=== PATIENT | male | born 1960 | race African-American/Black ===

== ENCOUNTER 2021-11-13 15:55 | Emergency (ER) | payer MEDICAID ==
[~2021-11-13] VITALS: Ht 185.4 cm; Wt 88.0 kg
[~2021-11-13 15:55] MED LIST: HYDROCHLOROTHIAZIDE; TAMS-11 PO
[2021-11-13 16:06] VITALS: BP 166/103
[2021-11-13] MEDS ORDERED: CEPH500C2 MT (22:36)
== END 2021-11-13 17:32 | disposition left against medical advice (07) ==
LOC: ER 15:55
DX: Z53.21 Procedure and treatment not carried out due to patient leaving prior to being seen by health care provider (principal)

== ENCOUNTER 2021-11-13 18:52 | Emergency (ER) | payer MEDICAID ==
[~2021-11-13] VITALS: Ht 188 cm; Wt 87.0 kg
[2021-11-13 19:29] LABS: BASOPHILS % 0.5 % (0.0-2.0); HEMOGLOBIN. 15.1 g/dL (14.0-18.0); LYMPHOCYTES % 33.5 % (20.0-50.0); MEAN CORPUSCULAR HEMOGLOBIN 29.6 pg (28.0-32.0); MEAN PLATELET VOLUME 9.5 fl (7.4-10.4); MONOCYTES % 5.4 % (2.0-8.0); NEUTROPHILS % 59.6 % (40.0-76.0); PLATELET 137 x1000/uL (130-400); RED BLOOD CELL COUNT 5.11 mill/uL (4.7-6.1); RED CELL DISTRIBUTION WIDTH 14.7 % (11.6-14.6)
[2021-11-13 19:36] LABS: CHLORIDE 110 mEq/L (98-107)
[2021-11-13 22:17] LABS: CLARITY URINE CLOUDY (CLEAR); COLOR URINE YELLOW (YELLOW); KETONES URINE TRACE (NEGATIVE); LEUKOCYTE ESTERASE URINE 3+ (NEGATIVE); NITRITE URINE NEGATIVE (NEGATIVE); OCCULT BLOOD URINE TRACE (NEGATIVE); PH URINE 5.5 (4.5-8.0); PROTEIN URINE TRACE (NEGATIVE); SPECIFIC GRAVITY URINE 1.021 (1.005-1.030); UROBILINOGEN URINE 0.2 E.U./dL (0.2-1.0)
[2021-11-13] MEDS ORDERED: CEFTRIAXONE 1 G PREMIX 50 ML IV ONE (22:30)
[2021-11-13] MEDS ORDERED: CEPH500C2 MT (22:36)
[2021-11-13 23:37] VITALS: BP 141/78
== END 2021-11-13 23:39 | disposition home or self-care (01) ==
LOC: ER 18:52
DX: R33.9 Retention of urine, unspecified (principal); N39.0 Urinary tract infection, site not specified; I10 Essential (primary) hypertension
CPT/HCPCS: 36415; 80053; 81003; 85025; 87077; 87086; 87186; 96365; 99284; J0696

== ENCOUNTER 2022-05-27 19:11 | Emergency (ER) | payer MEDICAID ==
[~2022-05-27] VITALS: Ht 188 cm; Wt 90.0 kg
[~2022-05-27 19:11] MED LIST changes: +CEPH500C2 MT
[2022-05-27 19:18] VITALS: BP 164/90
[2022-05-27] MEDS ORDERED: TAMSULOSIN HCL 0.4MG SR CAPSULE PO ONE ×2 (19:45)
== END 2022-05-28 01:27 ==
LOC: ER 19:11
DX: Z00.00 Encounter for general adult medical examination without abnormal findings (principal); D29.1 Benign neoplasm of prostate; E78.00 Pure hypercholesterolemia, unspecified; I10 Essential (primary) hypertension
CPT/HCPCS: 99283

== ENCOUNTER 2022-06-19 15:34 | Emergency (ER) | payer MEDICAID ==
[~2022-06-19] VITALS: Ht 182.9 cm; Wt 95.0 kg
[2022-06-19 15:37] VITALS: BP 138/83
[2022-06-19] MEDS ORDERED: SODIUM CHLORIDE 0.9% 1,000 ML IV ONE (16:00)
[2022-06-19 16:14] LABS: BASOPHILS % 0.6 % (0.0-2.0); EOSINOPHILS % 3.1 % (0.0-5.0); HEMATOCRIT. 41.1 % (42.0-52.0); HEMOGLOBIN. 13.8 g/dL (14.0-18.0); LYMPHOCYTES % 33.4 % (20.0-50.0); MEAN CORPUSCULAR HEMOGLOBIN 29.8 pg (28.0-32.0); MEAN CORPUSCULAR VOLUME 88.8 fL (80.0-94.0); MEAN PLATELET VOLUME 9.5 fl (7.4-10.4); MONOCYTES % 6.8 % (2.0-8.0); NEUTROPHILS % 56.1 % (40.0-76.0); PLATELET 148 x1000/uL (130-400); RED BLOOD CELL COUNT 4.63 mill/uL (4.7-6.1); RED CELL DISTRIBUTION WIDTH 14.1 % (11.6-14.6)
[2022-06-19 16:17] LABS: CHLORIDE 112 mEq/L (98-107)
[2022-06-19 17:41] LABS: CLARITY URINE TURBID (CLEAR); COLOR URINE ORANGE (YELLOW); KETONES URINE NEGATIVE (NEGATIVE); LEUKOCYTE ESTERASE URINE 3+ (NEGATIVE); NITRITE URINE POSITIVE (NEGATIVE); OCCULT BLOOD URINE 3+ (NEGATIVE); PROTEIN URINE 2+ (NEGATIVE); SPECIFIC GRAVITY URINE 1.023 (1.005-1.030)
[2022-06-19] MEDS ORDERED: CEFTRIAXONE 1GM PREMIX 50 ML IV NR (18:00)
[2022-06-19] MEDS ORDERED: DIPHENHYDRAMINE 50MG/ML VIAL ONE (18:41)
[2022-06-19] MEDS ORDERED: SULF1TAB48 MT (19:09)
[2022-06-19] MEDS ORDERED: DIPH25CA83 MT (19:09)
== END 2022-06-19 19:59 | disposition home or self-care (01) ==
LOC: ER 15:34
DX: N39.0 Urinary tract infection, site not specified (principal); I10 Essential (primary) hypertension; E78.00 Pure hypercholesterolemia, unspecified; Z98.890 Other specified postprocedural states
CPT/HCPCS: 36415; 80053; 81003; 83605; 83690; 85025; 85610; 87086; 87186; 96361; 96365; 99284; J0696; J1200; J7030; Z7610

== ENCOUNTER 2022-08-13 17:56 | Emergency (ER) | payer MEDICAID ==
[~2022-08-13] VITALS: Ht 177.8 cm; Wt 73.0 kg
[~2022-08-13 17:56] MED LIST changes: +DIPH25CA83 MT; +SULF1TAB48 MT
[2022-08-13 18:04] VITALS: O2SAT 97
[2022-08-13 18:40] LABS: BASOPHILS % 0.8 % (0.0-2.0); EOSINOPHILS % 4.1 % (0.0-5.0); HEMATOCRIT. 44.1 % (42.0-52.0); HEMOGLOBIN. 14.5 g/dL (14.0-18.0); LYMPHOCYTES % 39.1 % (20.0-50.0); MEAN CORPUSCULAR HEMOGLOBIN 29.4 pg (28.0-32.0); MEAN CORPUSCULAR VOLUME 89.4 fL (80.0-94.0); MEAN PLATELET VOLUME 9.8 fl (7.4-10.4); MONOCYTES % 7.9 % (2.0-8.0); NEUTROPHILS % 48.1 % (40.0-76.0); PLATELET 155 x1000/uL (130-400); RED BLOOD CELL COUNT 4.94 mill/uL (4.7-6.1); RED CELL DISTRIBUTION WIDTH 14.5 % (11.6-14.6)
[2022-08-13 18:47] LABS: CHLORIDE 113 mEq/L (98-107)
[2022-08-13 18:56] LABS: ETHANOL BLOOD < 10 mg/dL (-10)
[2022-08-13] MEDS ORDERED: ASPIRIN 325MG EC TABLET PO ONE (19:15)
[2022-08-13] MEDS ORDERED: DEXTROSE 50% WATER 50ML SYRINGE IV ONE (21:15)
[2022-08-13 21:21] LABS: CLARITY URINE CLOUDY (CLEAR); COLOR URINE YELLOW (YELLOW); KETONES URINE TRACE (NEGATIVE); LEUKOCYTE ESTERASE URINE 3+ (NEGATIVE); NITRITE URINE NEGATIVE (NEGATIVE); OCCULT BLOOD URINE 3+ (NEGATIVE); PROTEIN URINE TRACE (NEGATIVE)
[2022-08-13] MEDS ORDERED: CEFTRIAXONE 1GM PREMIX 50 ML IV ONE (21:30)
[2022-08-13 21:42] LABS: *AMPHETAMINES SCREEN URINE NEGATIVE (NEGATIVE); *BARBITURATES SCREEN URINE NEGATIVE (NEGATIVE); *BENZODIAZEPINES SCREEN URINE NEGATIVE (NEGATIVE); *COCAINE SCREEN URINE PRESUMTIVE POSITIVE (NEGATIVE); CANNABINOID URINE SCREEN PRESUMTIVE POSITIVE (NEGATIVE); METHADONE URINE SCREEN NEGATIVE (NEGATIVE); OPIATES URINE SCREEN NEGATIVE (NEGATIVE); PHENCYCLIDINE URINE SCREEN NEGATIVE (NEGATIVE)
[2022-08-13] MEDS ORDERED: EPINEPHRINE 1:1000 1 MG/ML AMP INJ STA (22:05)
[2022-08-13] MEDS ORDERED: METHYLPREDNISOLONE SOD SUCC 125 MG/2 ML VIAL IV ONE (22:15)
[2022-08-13] MEDS ORDERED: FAMOTIDINE 20MG/2ML VIAL IV ONE (22:15)
[2022-08-13] MEDS ORDERED: DIPHENHYDRAMINE 50MG/ML VIAL IV ONE (22:15)
[2022-08-13] MEDS ORDERED: EPINEPHRINE 1:1000 1 MG/ML AMP INJ ONE (22:15)
[2022-08-13] MEDS ORDERED: LEVOFLOXACIN 500MG PREMIX 100 ML IV ONE (22:30)
[2022-08-14 00:35] VITALS: BP 111/69; PULSE 62; RESP 12; TEMP 98.2
== END 2022-08-14 00:58 | disposition short-term general hospital (02) ==
LOC: ER 17:56
DX: I21.4 Non-ST elevation (NSTEMI) myocardial infarction (principal); F17.200 Nicotine dependence, unspecified, uncomplicated; F14.10 Cocaine abuse, uncomplicated; E78.00 Pure hypercholesterolemia, unspecified; I10 Essential (primary) hypertension
CPT/HCPCS: 36415; 71045; 80053; 80305; 80320; 81003; 82962; 83880; 84484; 85025; 85379; 85730; 87077; 87086; 87186; 93005; 96365; 96367; 96375; 99291; J0696; J1200; J1956; J2930; J3490; Z7610; A4315; G0480

== ENCOUNTER 2024-07-01 11:32 | Inpatient (IN) | payer MEDICAID ==
[2024-07-01] VITALS (10 sets, daily range): BP systolic 99–127; BP diastolic 67–95; PULSE 80–96; RESP 19–28; TEMP 36.7–37.1; O2SAT 94–95
[~2024-07-01] VITALS: Ht 185.4 cm; Wt 75.7 kg
[~2024-07-01 11:32] MED LIST changes: +ATOR20TA65 PO; +BUDE6HFA IH; +FINA5TAB11 PO; +HYDR25TA PO; +METO-396 PO; -SULF1TAB48 MT; -TAMS-11 PO; +TAMS-54 PO
[2024-07-01] MEDS: PIPERACILLIN/TAZO 3.375G/50ML 50 ML IV ONE (11:49)
[2024-07-01] MEDS: SODIUM CHLORIDE 0.9% (SEPSIS BOLUS) IV ONE (11:50)
[2024-07-01] MEDS: VANCOMYCIN 1G PREMIX 200 ML IV ONE (11:50)
[2024-07-01 11:53] LABS: BASOPHILS % 0.8 % (0.0-2.0); DIFFERENTIAL COMMENT 0; HEMATOCRIT. 39.1 % (42.0-52.0); HEMOGLOBIN. 12.6 g/dL (14.0-18.0); LYMPHOCYTES % 21.1 % (20.0-50.0); MEAN CORPUSCULAR HEMOGLOBIN 26.5 pg (28.0-32.0); MEAN CORPUSCULAR HGB CONC 32.3 g/dL (31.0-37.0); MEAN CORPUSCULAR VOLUME 82.1 fL (80.0-94.0); MEAN PLATELET VOLUME 9.9 fl (7.4-10.4); MONOCYTES % 7.3 % (2.0-8.0); NEUTROPHILS % 70.8 % (40.0-76.0); PLATELET 143 x1000/uL (130-400); RED BLOOD CELL COUNT 4.76 mill/uL (4.7-6.1); RED CELL DISTRIBUTION WIDTH 16.4 % (11.6-14.6); WHITE BLOOD COUNT 4.6 x1000/uL (4.5-11.0)
[2024-07-01 12:11] LABS: CARBON DIOXIDE 30 mEq/L (21-32); CHLORIDE 100 mEq/L (98-107); POTASSIUM 4.8 mEq/L (3.5-5.1); SODIUM 135 mEq/L (136-145)
[2024-07-01 12:12] LABS: CALCIUM 8.2 mg/dL (8.7-10.4)
[2024-07-01] MEDS: ALBUTEROL (0.083%) 2.5MG/3ML NEB HHN STA (12:15)
[2024-07-01] MEDS: IPRATROPIUM BROMIDE (0.02%) 0.5MG/2.5ML NEB HHN STA (12:15)
[2024-07-01 12:17] LABS: CREATININE 1.3 mg/dL (0.6-1.3); GLUCOSE 134 mg/dL (70-105); UREA NITROGEN BLOOD 20 mg/dL (9-23)
[2024-07-01 12:18] LABS: ALANINE AMINOTRANSFERASE 75 IU/L (10-49); ASPARTATE AMINOTRANSFERASE 47 IU/L (<34)
[2024-07-01 12:19] LABS: ALBUMIN 3.2 g/dL (3.2-4.8); BILIRUBIN DIRECT 0.3 mg/dL (<=3.0); BILIRUBIN TOTAL 0.7 mg/dL (0.1-1.0); PROTEIN TOTAL 6.1 g/dL (6.0-8.3)
[2024-07-01 12:21] LABS: TROPONIN I HIGH SENSITIVITY 56 ng/L (3.0-53)
[2024-07-01] MEDS ORDERED: DOCUSATE SODIUM 100MG CAPSULE PO PRN (15:00)
[2024-07-01] MEDS ORDERED: ACETAMINOPHEN 325MG TABLET PO PRN ×2 (15:00)
[2024-07-01] MEDS ORDERED: ONDANSETRON HCL 4MG/2ML INJ IV PRN (15:00)
[2024-07-01] MEDS ORDERED: IPRATROPIUM/ALBUTEROL 0.5-3(2.5)MG/3ML NEB HHN PRN (15:00)
[2024-07-01 16:07] LABS: TROPONIN I HIGH SENSITIVITY 67 ng/L (3.0-53)
[2024-07-01] MEDS: METHYLPREDNISOLONE SOD SUCC 40MG/ML (ACT-O-VIAL) IV SCH (16:08)
[2024-07-01] MEDS: ENOXAPARIN 40MG/0.4ML SYR SUBCUT SCH (16:08)
[2024-07-01] MEDS: IPRATROPIUM/ALBUTEROL 0.5-3(2.5)MG/3ML NEB HHN SCH (16:09)
[2024-07-01] MEDS: FUROSEMIDE 40MG/4ML VIAL IVP SCH (16:49)
[2024-07-01] MEDS: CLONIDINE 0.1MG TABLET PO PRN (17:51)
[2024-07-01 19:02] LABS: BG BASE EXCESS 4.4 mmol/L (-2.0-3.0); BG CARBOXYHEMOGLOBIN 1.1 % (0.5-1.5); BG DEOXYHEMOGLOBIN 9.3 % (0.0-5.0); BG FRACTION INSPIRED OXYGEN 21; BG HCO3 ACT 26.5 mmol/L (21.0-28.0); BG METHEMOGLOBIN 0.3 % (0.5-1.5); BG OXYGEN SATURATION 90.6 % (94.0-98.0); BG OXYHEMOGLOBIN 89.3 % (94.0-98.0); BG PCO2 31.5 mmHg (35.0-48.0); BG PH 7.542 (7.350-7.450); BG PO2 54.7 mmHg (83.0-108.0); BG SAMPLE SITE RIGHT BRACHIAL; BG TOTAL HEMOGLOBIN 13.1 g/dL (13.5-17.5); BG VENT MODE ROOM AIR
[2024-07-01 21:27] LABS: D-DIMER 0.91 mg/L FEU (<0.50); INR 1.3
[2024-07-01 21:34] LABS: THYROID STIMULATING HORMONE 1.14 uIU/mL (0.55-4.78)
[2024-07-01 21:35] LABS: T4 FREE 1.25 ng/dL (0.89-1.76)
[2024-07-01] MEDS: PIPERACILLIN/TAZO 3.375G/50ML 50 ML IV SCH (23:04)
[2024-07-01] MEDS: AZITHROMYCIN 500MG/250ML 250 ML IV SCH (23:56)
[2024-07-01] MEDS: ATORVASTATIN CALCIUM 20MG TABLET PO SCH (23:56)
[2024-07-02] VITALS (18 sets, daily range): BP systolic 103–132; BP diastolic 69–94; PULSE 71–96; RESP 15–30; TEMP 36.4–36.9; O2SAT 91–98
[2024-07-02 00:40] LABS: CREATINE KINASE MB FRACTION 0.8 ng/mL (0.5-3.6)
[2024-07-02 06:21] LABS: INR 1.3; PROTHROMBIN TIME 13.7 sec (9.6-11.0)
[2024-07-02 06:22] LABS: BASOPHILS % 0.3 % (0.0-2.0); DIFFERENTIAL COMMENT 0; HEMATOCRIT. 35.2 % (42.0-52.0); HEMOGLOBIN. 11.5 g/dL (14.0-18.0); MEAN CORPUSCULAR HEMOGLOBIN 26.2 pg (28.0-32.0); MEAN CORPUSCULAR HGB CONC 32.6 g/dL (31.0-37.0); MEAN CORPUSCULAR VOLUME 80.1 fL (80.0-94.0); MEAN PLATELET VOLUME 9.8 fl (7.4-10.4); MONOCYTES % 4.6 % (2.0-8.0); NEUTROPHILS % 83.1 % (40.0-76.0); PLATELET 135 x1000/uL (130-400); RED CELL DISTRIBUTION WIDTH 16.1 % (11.6-14.6)
[2024-07-02 06:46] LABS: CHLORIDE 99 mEq/L (98-107); POTASSIUM 4.3 mEq/L (3.5-5.1); SODIUM 135 mEq/L (136-145)
[2024-07-02 06:47] LABS: CALCIUM 7.7 mg/dL (8.7-10.4); CARBON DIOXIDE 31 mEq/L (21-32)
[2024-07-02 06:52] LABS: CREATININE 1.3 mg/dL (0.6-1.3); GLUCOSE 163 mg/dL (70-105); TRIGLYCERIDE 54 mg/dL (0-150); UREA NITROGEN BLOOD 26 mg/dL (9-23)
[2024-07-02 06:53] LABS: ALANINE AMINOTRANSFERASE 56 IU/L (10-49); LDL CHOLESTEROL 78 mg/dL (5-100)
[2024-07-02 06:54] LABS: ALBUMIN 2.7 g/dL (3.2-4.8); ASPARTATE AMINOTRANSFERASE 31 IU/L (<34); BILIRUBIN DIRECT 0.3 mg/dL (<=3.0); CHOLESTEROL 112 mg/dL (<200); HDL CHOLESTEROL 25 mg/dL (>55); PHOSPHORUS 3.4 mg/dL (2.5-4.9); PROTEIN TOTAL 4.9 g/dL (6.0-8.3)
[2024-07-02 06:55] LABS: BILIRUBIN TOTAL 0.6 mg/dL (0.1-1.0)
[2024-07-02 06:56] LABS: CREATINE KINASE MB FRACTION 1.1 ng/mL (0.5-3.6)
[2024-07-02] MEDS: LOSARTAN 25 MG TABLET PO SCH (08:33)
[2024-07-02] MEDS: ASPIRIN 81MG TABLET PO SCH (08:33)
[2024-07-02] MEDS: FINASTERIDE 5MG TABLET PO SCH (08:34)
[2024-07-02] MEDS: TAMSULOSIN HCL 0.4MG SR CAPSULE PO SCH (08:34)
[2024-07-02] MEDS: FAMOTIDINE 20MG/2ML VIAL IV SCH (08:34)
[2024-07-03] VITALS (17 sets, daily range): BP systolic 120–154; BP diastolic 75–125; PULSE 82–95; RESP 16–28; TEMP 36.6–36.8; O2SAT 90–99
[2024-07-03 00:31] LABS: CLARITY URINE CLEAR (CLEAR); COLOR URINE YELLOW (YELLOW); GLUCOSE URINE NEGATIVE (NEGATIVE); KETONES URINE NEGATIVE (NEGATIVE); LEUKOCYTE ESTERASE URINE 2+ (NEGATIVE); NITRITE URINE NEGATIVE (NEGATIVE); OCCULT BLOOD URINE NEGATIVE (NEGATIVE); PROTEIN URINE NEGATIVE (NEGATIVE); SPECIFIC GRAVITY URINE 1.009 (1.005-1.030); UROBILINOGEN URINE 0.2 E.U./dL (0.2-1.0)
[2024-07-03 00:57] LABS: *AMPHETAMINES SCREEN URINE NEGATIVE (NEGATIVE); *BARBITURATES SCREEN URINE NEGATIVE (NEGATIVE); *BENZODIAZEPINES SCREEN URINE NEGATIVE (NEGATIVE); *COCAINE SCREEN URINE NEGATIVE (NEGATIVE); CANNABINOID URINE SCREEN NEGATIVE (NEGATIVE); ECSTASY MDMA SCREEN URINE NEGATIVE (NEGATIVE); METHADONE URINE SCREEN NEGATIVE (NEGATIVE); OPIATES URINE SCREEN NEGATIVE (NEGATIVE); PHENCYCLIDINE URINE SCREEN NEGATIVE (NEGATIVE)
[2024-07-03 01:31] LABS: RBC URINE NONE SEEN /hpf (0-2); SQUAMOUS EPITHELIAL CELL URINE NONE SEEN /lpf (RARE/1+); WBC URINE 25-50 /hpf (0-2)
[2024-07-03 01:32] LABS: BACTERIA URINE TRACE
[2024-07-03] MEDS: AZITHROMYCIN 500 MG TABLET PO SCH (21:37)
[2024-07-04] VITALS (11 sets, daily range): BP systolic 120–155; BP diastolic 60–95; PULSE 78–95; RESP 14–25; TEMP 36.5–36.8; O2SAT 95–99
[2024-07-04] MEDS ORDERED: LOSA25TA26 PO (10:06)
[2024-07-04] MEDS ORDERED: FURO40TA5 MT (10:06)
[2024-07-04] MEDS ORDERED: FAMO20TA8 MT (10:06)
[2024-07-04] MEDS ORDERED: ASPI-1160 PO (10:06)
[2024-07-04] MEDS ORDERED: P20 MT (10:06)
== END 2024-07-04 13:48 | disposition home or self-care (01) | DRG 720 ==
LOC: ER 11:38 → 5EST 14:05
PROVIDERS: ADMIT Internal Medicine; ATTEND Internal Medicine
PROC: 5A09357 Assistance with Respiratory Ventilation, Less than 24 Consecutive Hours, Continuous Positive Airway Pressure (ICD-10-PCS; principal; 2024-07-01)
DX: A41.9 Sepsis, unspecified organism (principal); J96.01 Acute respiratory failure with hypoxia; E87.20 Acidosis, unspecified; J18.9 Pneumonia, unspecified organism; I11.0 Hypertensive heart disease with heart failure; I50.9 Heart failure, unspecified; J44.0 Chronic obstructive pulmonary disease with (acute) lower respiratory infection; Z20.822 Contact with and (suspected) exposure to COVID-19; N40.0 Benign prostatic hyperplasia without lower urinary tract symptoms; F12.90 Cannabis use, unspecified, uncomplicated; R65.20 Severe sepsis without septic shock; E78.00 Pure hypercholesterolemia, unspecified; J44.1 Chronic obstructive pulmonary disease with (acute) exacerbation; Z88.1 Allergy status to other antibiotic agents
CPT/HCPCS: 36415; 36600; 71045; 80048; 80061; 80076; 80305; 81003; 82375; 82550; 82553; 82805; 83036; 83605; 83735; 83880; 84100; 84145; 84439; 84443; 84480; 84484; 85025; 85379; 87426; 93005; 93306; 94070; 94640; 94660; 94664; 99291; A4606; J0456; J1650; J1940; J2543; J2919; J3370; J3490; J7030

== ENCOUNTER 2024-09-20 10:25 | Emergency (ER) | payer MEDICAID ==
[~2024-09-20] VITALS: Ht 188 cm; Wt 80.0 kg
[~2024-09-20 10:25] MED LIST changes: +ASPI-1160 PO; -CEPH500C2 MT; +COR12 PO; -DIPH25CA83 MT; +ERTA1VIA3 IM; +FAMO20TA8 MT; +FURO40TA5 MT; -HYDR25TA PO; -HYDROCHLOROTHIAZIDE; +LOSA25TA26 PO; -METO-396 PO
[2024-09-20 11:02] VITALS: PULSE 80; RESP 22; O2SAT 95
[2024-09-20] MEDS: ALBUTEROL (0.083%) 2.5MG/3ML NEB HHN SCH (11:02)
[2024-09-20] MEDS: IPRATROPIUM BROMIDE (0.02%) 0.5MG/2.5ML NEB HHN SCH (11:02)
[2024-09-20 12:00] LABS: BASOPHILS % 1.1 % (0.0-2.0); EOSINOPHILS % 1.8 % (0.0-5.0); HEMATOCRIT. 42.9 % (42.0-52.0); HEMOGLOBIN. 13.8 g/dL (14.0-18.0); LYMPHOCYTES % 29.5 % (20.0-50.0); MEAN PLATELET VOLUME 10.1 fl (7.4-10.4); MONOCYTES % 7.5 % (2.0-8.0); NEUTROPHILS % 60.1 % (40.0-76.0); PLATELET 184 x1000/uL (130-400); RED BLOOD CELL COUNT 5.22 mill/uL (4.7-6.1); RED CELL DISTRIBUTION WIDTH 21.6 % (11.6-14.6)
[2024-09-20 12:09] VITALS: PULSE 90; RESP 20; O2SAT 96
[2024-09-20] MEDS ORDERED: P50 PO (12:48)
[2024-09-20] MEDS ORDERED: ALBU90AE INH (12:48)
[2024-09-20 12:49] VITALS: PULSE 84; RESP 20; O2SAT 95
[2024-09-20 13:03] LABS: CREATININE 1.4 mg/dL (0.6-1.3); UREA NITROGEN BLOOD 29 mg/dL (9-23)
[2024-09-20 13:19] LABS: TROPONIN I HIGH SENSITIVITY 59 ng/L (3.0-53)
[2024-09-20 13:28] VITALS: BP 136/93; PULSE 86; RESP 22; TEMP 37.1; O2SAT 98
== END 2024-09-20 13:32 | disposition home or self-care (01) ==
LOC: ER 10:25 → CMPBEDREQ 09-21 22:27
DX: J44.1 Chronic obstructive pulmonary disease with (acute) exacerbation (principal); I50.9 Heart failure, unspecified; Z46.6 Encounter for fitting and adjustment of urinary device; Z79.51 Long term (current) use of inhaled steroids; Z79.52 Long term (current) use of systemic steroids; Z79.82 Long term (current) use of aspirin; Z79.899 Other long term (current) drug therapy; Z87.440 Personal history of urinary (tract) infections; Z88.1 Allergy status to other antibiotic agents
CPT/HCPCS: 80048; 85025; 84484; 36415; 71045; 94640; 93005; 51702; 99285; Z7610 ×6; 94070; A4606

== ENCOUNTER 2024-12-01 18:38 | Inpatient (IN) | payer MEDICAID ==
[~2024-12-01] VITALS: Ht 185.4 cm; Wt 72.7 kg
[~2024-12-01 18:38] MED LIST changes: +ALBU90AE INH; +P50 PO
[2024-12-01] MEDS: FUROSEMIDE 40MG/4ML VIAL IV ONE (20:49)
[2024-12-01] MEDS: METHYLPREDNISOLONE SOD SUCC 125MG/2ML (ACT-O-VIAL) IV ONE (20:49)
[2024-12-01 20:51] VITALS: PULSE 99; RESP 27
[2024-12-01] MEDS: ALBUTEROL (0.083%) 2.5MG/3ML NEB HHN ONE (20:51)
[2024-12-01] MEDS: IPRATROPIUM BROMIDE (0.02%) 0.5MG/2.5ML NEB HHN ONE (20:51)
[2024-12-01 21:09] LABS: BASOPHILS % 1.0 % (0.0-2.0); EOSINOPHILS % 1.6 % (0.0-5.0); HEMATOCRIT. 37.5 % (42.0-52.0); HEMOGLOBIN. 11.6 g/dL (14.0-18.0); LYMPHOCYTES % 25.5 % (20.0-50.0); MEAN PLATELET VOLUME 8.7 fl (7.4-10.4); MONOCYTES % 9.4 % (2.0-8.0); NEUTROPHILS % 62.5 % (40.0-76.0); PLATELET 211 x1000/uL (130-400); RED BLOOD CELL COUNT 4.70 mill/uL (4.7-6.1); RED CELL DISTRIBUTION WIDTH 18.6 % (11.6-14.6)
[2024-12-01 21:26] LABS: CREATININE 1.2 mg/dL (0.6-1.3); TROPONIN I HIGH SENSITIVITY 48 ng/L (3.0-53); UREA NITROGEN BLOOD 11 mg/dL (9-23)
[2024-12-01 21:27] LABS: ASPARTATE AMINOTRANSFERASE 26 IU/L (<34)
[2024-12-01 21:28] LABS: BILIRUBIN DIRECT 0.4 mg/dL (<=3.0); BILIRUBIN TOTAL 0.9 mg/dL (0.1-1.0); PROTEIN TOTAL 6.7 g/dL (6.0-8.3)
[2024-12-01 21:57] LABS: INR 1.2
[2024-12-01] MEDS ORDERED: DOCUSATE SODIUM 100MG CAPSULE PO PRN (22:45)
[2024-12-01] MEDS ORDERED: IPRATROPIUM/ALBUTEROL 0.5-3(2.5)MG/3ML NEB HHN PRN (22:45)
[2024-12-01] MEDS ORDERED: ONDANSETRON HCL 4MG/2ML INJ IV PRN (22:45)
[2024-12-01] MEDS ORDERED: ACETAMINOPHEN 325MG TABLET PO PRN ×2 (22:45)
[2024-12-01] MEDS ORDERED: CLONIDINE 0.1MG TABLET PO PRN (22:45)
[2024-12-01] MEDS ORDERED: MAGNESIUM/ALUMINUM HYDROXIDE/SIMETHICONE 30ML UDC PO PRN (22:45)
[2024-12-01 22:51] LABS: CLARITY URINE CLEAR (CLEAR); GLUCOSE URINE NEGATIVE (NEGATIVE); KETONES URINE NEGATIVE (NEGATIVE); LEUKOCYTE ESTERASE URINE TRACE (NEGATIVE); NITRITE URINE NEGATIVE (NEGATIVE); OCCULT BLOOD URINE NEGATIVE (NEGATIVE); PH URINE 7.0 (4.5-8.0); PROTEIN URINE NEGATIVE (NEGATIVE); SPECIFIC GRAVITY URINE 1.007 (1.005-1.030); UROBILINOGEN URINE 0.2 E.U./dL (0.2-1.0)
[2024-12-01 23:03] LABS: COLOR URINE STRAW (YELLOW)
[2024-12-01 23:05] LABS: RBC URINE NONE SEEN /hpf (0-2)
[2024-12-01 23:06] LABS: BACTERIA URINE NONE SEEN; SQUAMOUS EPITHELIAL CELL URINE NONE SEEN /lpf (RARE/1+)
[2024-12-01 23:40] LABS: TROPONIN I HIGH SENSITIVITY 48 ng/L (3.0-53)
[2024-12-02] VITALS (7 sets, daily range): BP systolic 127–160; BP diastolic 62–99; PULSE 70–104; RESP 18–23; TEMP 35.6–37.252; O2SAT 93–97
[2024-12-02] MEDS ORDERED: HYOS-16 SL (02:18)
[2024-12-02] MEDS ORDERED: IPRA3AMP9 (02:18)
[2024-12-02] MEDS ORDERED: ACET650S27 RC (02:18)
[2024-12-02] MEDS ORDERED: ACET-3800 PO (02:18)
[2024-12-02] MEDS ORDERED: ONDA-239 PO (02:18)
[2024-12-02] MEDS ORDERED: LORA2ORA5 (02:18)
[2024-12-02] MEDS ORDERED: MORP100S6 (02:18)
[2024-12-02] MEDS ORDERED: SPIR25TA6 PO (02:18)
[2024-12-02] MEDS ORDERED: ASPI-1406 PO (02:18)
[2024-12-02] MEDS: FUROSEMIDE 40MG/4ML VIAL IV SCH (06:35)
[2024-12-02 07:39] LABS: HEMATOCRIT. 34.9 % (42.0-52.0); HEMOGLOBIN. 11.1 g/dL (14.0-18.0); MEAN PLATELET VOLUME 8.9 fl (7.4-10.4); PLATELET 194 x1000/uL (130-400); RED BLOOD CELL COUNT 4.48 mill/uL (4.7-6.1); RED CELL DISTRIBUTION WIDTH 18.4 % (11.6-14.6)
[2024-12-02] MEDS: ASPIRIN 81MG TABLET PO SCH (08:30)
[2024-12-02] MEDS: LOSARTAN 25 MG TABLET PO SCH (08:30)
[2024-12-02] MEDS: THIAMINE HCL 100MG TABLET PO SCH (08:30)
[2024-12-02] MEDS: ATORVASTATIN CALCIUM 20MG TABLET PO SCH (08:31)
[2024-12-02] MEDS: FINASTERIDE 5MG TABLET PO SCH (08:31)
[2024-12-02] MEDS: ENOXAPARIN 30MG/0.3ML SYR SUBCUT SCH (08:31)
[2024-12-02] MEDS ORDERED: CARVEDILOL 12.5MG TABLET PO SCH (09:00)
[2024-12-02 13:27] LABS: BAND% 6.0 % (1.0-6.0); LYMPHOCYTES % MANUAL 4.0 % (20.0-50.0); MONOCYTES % MANUAL 1.0 % (2.0-8.0); NEUTROPHILS % MANUAL 89.0 % (45.0-75.0); PLATELET ESTIMATE NORMAL
[2024-12-02 13:38] LABS: *AMPHETAMINES SCREEN URINE NEGATIVE (NEGATIVE); *BARBITURATES SCREEN URINE NEGATIVE (NEGATIVE); *BENZODIAZEPINES SCREEN URINE NEGATIVE (NEGATIVE); *COCAINE SCREEN URINE PRESUMPTIVE POSITIVE (NEGATIVE); CANNABINOID URINE SCREEN NEGATIVE (NEGATIVE); METHADONE URINE SCREEN NEGATIVE (NEGATIVE); OPIATES URINE SCREEN NEGATIVE (NEGATIVE); PHENCYCLIDINE URINE SCREEN NEGATIVE (NEGATIVE)
[2024-12-02 13:39] LABS: ECSTASY MDMA SCREEN URINE NEGATIVE (NEGATIVE)
[2024-12-02 13:49] LABS: TRIGLYCERIDE 31.0 mg/dL (0-150)
[2024-12-02 13:50] LABS: LDL CHOLESTEROL 66.0 mg/dL (5-100)
[2024-12-02 13:53] LABS: T4 FREE 1.12 ng/dL (0.89-1.76)
[2024-12-02 18:06] LABS: CREATINE KINASE MB FRACTION 2.4 ng/mL (0.5-3.6)
[2024-12-02 18:07] LABS: TROPONIN I HIGH SENSITIVITY 30.0 ng/L (3.0-53)
[2024-12-02] MEDS: IPRATROPIUM/ALBUTEROL 0.5-3(2.5)MG/3ML NEB HHN SCH (19:55)
[2024-12-02] MEDS: BUDESONIDE 0.5MG/2ML NEB HHN SCH (19:55)
[2024-12-03] VITALS (9 sets, daily range): BP systolic 119–150; BP diastolic 72–98; PULSE 71–105; RESP 18–22; TEMP 35.9–36.4; O2SAT 94–100
[2024-12-03] MEDS: TAMSULOSIN HCL 0.4MG SR CAPSULE PO SCH (08:35)
[2024-12-04] VITALS (7 sets, daily range): BP systolic 117–139; BP diastolic 76–99; PULSE 85–95; RESP 18–20; TEMP 36.3–37.1; O2SAT 92–100
[2024-12-04] MEDS ORDERED: TIOT18CA3 INH (10:13)
[2024-12-04] MEDS ORDERED: SPIR25TA6 MT (10:13)
[2024-12-04] MEDS ORDERED: FURO10VI3 PO (10:13)
[2024-12-04] MEDS ORDERED: ASPI-1406 MT (10:13)
[2024-12-04] MEDS ORDERED: TAMS-54 MT (10:13)
[2024-12-04] MEDS ORDERED: FINA1TAB14 MT (10:13)
[2024-12-04] MEDS ORDERED: ALBU18HF2 IH (10:13)
[2024-12-04] MEDS ORDERED: OMEP40CA20 MT (10:14)
== END 2024-12-04 15:11 | disposition home or self-care (01) | DRG 194 ==
LOC: ER 18:38 → 7WST 22:19 → EDBEDREQ 22:20 → EDBEDREQTM 22:20 → ENRESERV 23:24
PROVIDERS: ADMIT Student in an Organized Health Care Education/Training Program; ATTEND Student in an Organized Health Care Education/Training Program
DX: I11.0 Hypertensive heart disease with heart failure (principal); J96.21 Acute and chronic respiratory failure with hypoxia; I50.43 Acute on chronic combined systolic (congestive) and diastolic (congestive) heart failure; I27.29 Other secondary pulmonary hypertension; I50.82 Biventricular heart failure; F14.10 Cocaine abuse, uncomplicated; J44.9 Chronic obstructive pulmonary disease, unspecified; I08.1 Rheumatic disorders of both mitral and tricuspid valves; F17.210 Nicotine dependence, cigarettes, uncomplicated; Z91.148 Patient's other noncompliance with medication regimen for other reason; Z79.899 Other long term (current) drug therapy; Z91.09 Other allergy status, other than to drugs and biological substances
CPT/HCPCS: 36415; 71045; 80048; 80061; 80076; 80305; 81003; 82550; 82553; 83036; 83880; 84439; 84443; 84484; 85025; 85379; 93005; 93306; 93970; 94070; 94640; 94664; 94760; 96374; 96375; 98960; 99285; A4606; J1650; J1938; J2919; J7626